=== PATIENT | female | born 1980 | race Caucasian/White ===

== ENCOUNTER 2018-10-02 19:22 | Emergency (ER) | payer OTHER ==
[~2018-10-02] VITALS: Ht 162.6 cm; Wt 86.2 kg
[~2018-10-02 19:22] MED LIST: ALDOMET250 MG PO; CORGARD20 MG PO; DOXYCYCLINE 10100 MG PO; METROCREAM45 GM TOP; NORCO 5-325 TA1 EAC1 PO; ZONEGRAN100 MG; ZONEGRAN100 MG PO; ZONEGRAN50 MG; ZONEGRAN50 MG PO; ZONISAMIDE 100100 M1 PO
[2018-10-02 20:09] LABS: ABSOLUTE BASOPHILS 0.1 thou/uL (0.0-0.2); ABSOLUTE EOSINOPHILS 0.2 thou/uL (0.0-0.7); ABSOLUTE MONOCYTES 0.4 thou/uL (0.0-1.2); ABSOLUTE NEUTROPHILS 4.5 thou/uL (1.6-8.1); BASOPHILS 0.8 %; EOSINOPHILS 2.2 %; HEMATOCRIT 38.6 % (37.0-47.0); LYMPHOCYTES 27.7 %; MCH 32.5 pg (26.0-34.0); MCHC 33.7 g/dL (28.0-37.0); MCV 96.6 fL (80.0-100.0); MONOCYTES 5.4 %; MPV 9.3 fl. (7.2-11.1); NUCLEATED RBCS 0 /100WBC; PLATELET COUNT* 209 thou/uL (150-400); POLYS 63.9 %; RBC 3.99 mil/uL (4.20-5.00); RDW-CV 14.1 % (10.5-14.5); WBC 7.1 thou/uL (4.0-11.0)
[2018-10-02 20:13] LABS: URINE BILIRUBIN NEGATIVE (Negative); URINE BLOOD 3+ (Negative); URINE CLARITY CLEAR; URINE COLOR YELLOW; URINE GLUCOSE-RANDOM NEGATIVE (Negative); URINE KETONES NEGATIVE (Negative); URINE LEUKOCYTES NEGATIVE (Negative); URINE NITRITE NEGATIVE (Negative); URINE PROTEIN NEGATIVE (Negative); URINE SPECIFIC GRAVITY 1.025 (1.005-1.030); URINE UROBILINOGEN 0.2 E.U./dl (0.2-1.0)
[2018-10-02 20:19] LABS: ALBUMIN 3.9 g/dL (3.4-5.0); CREATININE 1.1 mg/dL (0.6-1.3); POTASSIUM 3.7 mmol/L (3.5-5.1); TOTAL BILIRUBIN 0.2 mg/dL (<0.1-1.0); TOTAL PROTEIN 7.3 g/dL (6.4-8.2)
[2018-10-02 20:22] LABS: BACTERIA 1-9 Few /HPF (None Seen); CASTS None Seen /LPF (None Seen); CRYSTALS None Seen /LPF (None Seen); SQUAMOUS 0-3 Few /LPF (0-3); URINE RBC 0-2 Rare /HPF (0-2); URINE WBC 0-5 Rare /HPF (0-5)
[2018-10-02] MEDS ORDERED: HYDROCODONE-AP1 EAC6 PO (22:35)
[2018-10-02] MEDS ORDERED: ZOFRAN4 MG PO (22:36)
[2018-10-02 23:05] VITALS: BP 122/68
== END 2018-10-02 23:05 | disposition home or self-care (01) ==
LOC: M.ERS 19:22
PROVIDERS: Nurse Practitioner
DX: O20.0 Threatened abortion (principal); O99.331 Smoking (tobacco) complicating pregnancy, first trimester; Z3A.08 8 weeks gestation of pregnancy